=== PATIENT | female | born 1995 | race Caucasian/White ===

== ENCOUNTER → 2022-09-24 14:49 | Outpatient (BNVA) | payer OTHER, SELFPAY | PROVIDERS: PCP Internal Medicine; Visit Provider Student in an Organized Health Care Education/Training Program | DX: R76.8 Other specified abnormal immunological findings in serum (principal); I73.00 Raynaud's syndrome without gangrene | CPT/HCPCS: 99202 ==

== ENCOUNTER 2022-09-24 15:57 | Outpatient (REF) | payer OTHER, SELFPAY ==
[2022-09-24 17:05] LABS: Basophils Percent Auto 0.3 % (0-2); Mean Corpuscular Hemoglobin 31.7 pg (27.0-33.0); PLT CLUMP 1; Red Cell Distribution Width 12.4 % (11.0-16.0); SCAN SMEAR FLAG 1
[2022-09-24 17:08] LABS: Eosinophils Absolute Auto 0.1 X10*3/uL (0.0-0.4); Eosinophils Percent Auto 1.5 % (0-4); Hematocrit 41.9 % (37.0-47.0); Imm Gran Abs Auto 0.03 X10*3/uL (0.00-0.03); Imm Gran Pct Auto 0.3 % (0.0-0.4); Lymphocytes Absolute Auto 1.7 X10*3/uL (1.2-4.9); Lymphocytes Percent Auto 19.2 % (20-40); MANUAL DIFF FLAG SCAN; Mean Corpuscular HGB Conc 33.4 g/dl (31.0-35.0); Monocytes Absolute Auto 0.9 X10*3/uL (0.1-1.2); Monocytes Percent Auto 10.1 % (2-11); Neutrophils Absolute Auto 6.1 x10*3/uL (2.0-8.3); Neutrophils Percent Auto 68.6 % (45-73); Red Blood Count 4.41 X10*6/uL (4.20-5.50)
[2022-09-24 17:40] LABS: Platelet Count 216 X10*3/uL (160-400)
[2022-09-24 17:41] LABS: SLIDE REVIEW VERIFIED; White Blood Count 8.9 X10*3/uL (4.8-10.8)
[2022-09-24 18:16] LABS: Erythrocyte Sedimentation Rate 4 MM/HR (0-20)
[2022-09-24 18:28] LABS: Alanine Aminotransferase 17 U/L (0-31); Albumin Level 4.6 g/dL (3.5-5.0); Alkaline Phosphatase 68 U/L (39-117); Anion Gap 11 (12-20); Aspartate Amino Transferase 22 U/L (5-31); Bilirubin Total 0.2 mg/dL (0.0-1.0); Blood Urea Nitrogen 18 mg/dL (9-16); C Reactive Protein < 0.10 mg/dL (< or = 0.50); Calcium 9.8 mg/dL (8.4-10.2); Carbon Dioxide 25 mmol/L (22-29); Chloride 107 mmol/L (96-108); Estimated Glomerular Filt Rate > 60; Glucose Random 98 mg/dL (60-115); Potassium 4.3 mmol/L (3.3-5.1); Rheumatoid Factor < 13.0 IU/mL (<15.0); Sodium 139 mmol/L (135-145); Total Protein 7.5 g/dL (6.5-8.0)
[2022-09-25 10:59] LABS: Complement C3 100 mg/dL (83-193)
[2022-09-26 14:18] LABS: IgA 209 mg/dL (47-310); IgG 1286 mg/dL (600-1640); IgM 102 mg/dL (50-300)
[2022-09-28 12:43] LABS: Immunoglobulin G Subclass 1 655 mg/dL (382-929); Immunoglobulin G Subclass 2 266 mg/dL (241-700); Immunoglobulin G Subclass 3 73 mg/dL (22-178); Immunoglobulin G Subclass 4 98.8 mg/dL (4-86); Immunoglobulin G Total 1219 mg/dL (600-1640)
[2022-09-28 13:38] LABS: Cardiolipin IgG Ab <2.0 GPL-U/mL; Cardiolipin IgM Ab <2.0 MPL-U/mL
[2022-09-28 15:09] LABS: Anti Nuclear Antibody Screen POSITIVE (NEGATIVE)
[2022-09-28 16:28] LABS: Cyclic Citrullinated Peptide <16 UNITS
[2022-09-28 19:25] LABS: Anti DNA DS Antibody <1 IU/mL; Antibody to SS-A Antigen <1.0 NEG AI (<1.0 NEG); Antibody to SS-B Antigen <1.0 NEG AI (<1.0 NEG); SM/Ribonucleoprotein Ab <1.0 NEG AI (<1.0 NEG); Smith Protein <1.0 NEG AI (<1.0 NEG)
[2022-09-29 13:23] LABS: PTT (LAC) Screen 33 sec (<=40)
[2022-09-30 04:04] LABS: Beta-2 Glycoprotein IgA <2.0 U/mL (<20.0); Beta-2 Glycoprotein IgG <2.0 U/mL (<20.0); Beta-2 Glycoprotein IgM <2.0 U/mL (<20.0)
[2022-10-01 14:09] LABS: Centromere Protein A Ab <11 SI (<11); Centromere Protein B Ab <11 SI (<11); Fibrillarin Ab <11 SI (<11); PM SCL 100 Ab <11 SI (<11); PM SCL 75 Ab <11 SI (<11); RNA Polymerase III RP11 Ab <11 SI (<11); RNA Polymerase III RP155 Ab <11 SI (<11); SCL-70 Extractable Nuclear Ab <11 SI (<11); Th-To Ab <11 SI (<11); U1 SNRNP RNP 70KD <11 SI (<11); U1 SNRNP RNP A <11 SI (<11); U1 SNRNP RNP C <11 SI (<11)
[2022-10-01 14:53] LABS: DNAds, Crithidia Antibody Negative (Negative)
== END 2022-09-24 15:58 | disposition home or self-care (01) ==
LOC: HO.LAB 15:57
PROVIDERS: Visit Provider Student in an Organized Health Care Education/Training Program
DX: R76.8 Other specified abnormal immunological findings in serum (principal); I73.00 Raynaud's syndrome without gangrene
CPT/HCPCS: 36415; 80053; 82550; 82784; 84182; 85025; 85597; 85613; 85652; 85730; 86038; 86039; 86140; 86146; 86147; 86160; 86200; 86225; 86235; 86255; 86431

== ENCOUNTER 2022-12-03 10:43 | Outpatient (REF) | payer SELFPAY ==
[2022-12-03 14:01] LABS: Appearance Urine Cloudy; Color Urine Yellow; Glucose Urine UA Negative (Negative); Leukocyte Esterase Urine Negative (Negative); Nitrite Urine Negative (Negative); PH 6.5 (5.0-9.0); Specific Gravity - Urine >= 1.030 (1.005-1.025); Urine Blood Negative (Negative); Urine Ketones 15 mg/dL (Negative); Urine Protein Trace mg/dL (Neg-Trace)
== END 2022-12-03 10:44 | disposition home or self-care (01) ==
LOC: HO.LAB 10:43
PROVIDERS: Visit Provider Nurse Practitioner Family
DX: R07.81 Pleurodynia (principal)
CPT/HCPCS: 81003

== ENCOUNTER 2023-08-06 07:57 | Outpatient (AMB) | payer OTHER, SELFPAY ==
--- NOTE | 2023-08-06 07:57 | MHC.OFFVIS ---
Intake Vital Signs 08/06/23 07:58 Height 5 ft 7 in Weight 132 lb 4.438 oz BMI 20.7 BP 110/70 Blood Pressure Location Lt brachial Position Sitting Pulse 73 Pulse Source Pulse Oximeter Temp 98.2 F Temp Source Skin Pulse Oximetry (%) 93 Oxygen Delivery Method Room Air Intake Visit Reasons: +VE ANDRAE Intake Note: Pt presents today for follow up and test results. Reports always feeling tired. 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 Accompanied by: Self / Same As Patient Allergies amoxicillin Adverse Reaction (Unknown, Verified 08/06/23 07:59) Unknown benzoyl peroxide Adverse Reaction (Unknown, Verified 08/06/23 07:59) Unknown doxycycline Adverse Reaction (Unknown, Verified 08/06/23 07:59) Unknown nut - unspecified Adverse Reaction (Unknown, Verified 08/06/23 07:59) Unknown Penicillins Adverse Reaction (Unknown, Verified 08/06/23 07:59) Unknown Medication List - Last Reconciled 08/06/23 by Neto Estrada MD blood-glucose sensor (Power Fingerprinting G7 Sensor device) As directed bupropion HCl 150 mg PO DAILY buspirone 5 mg PO DAILY epinephrine IM fluoxetine 10 mg PO DAILY insulin aspart U-100 (Novolog FlexPen U-100 Insulin aspart) 0 - 12 units subcut TID insulin aspart U-100 (Novolog U-100 Insulin aspart) subcut insulin glargine (Lantus Solostar U-100 Insulin) 18 units subcut BEDTIME subcutaneous insulin pump (T:Slim X2 Control-IQ) As directed HPI HPI Comments History of Present Illness Details Patient returns for follow-up after completion of her blood work. Initial history: This is a 26-year-old female with a past medical history of celiac disease diagnosed at age 19 after endoscopy + biopsy who presents for evaluation of a positive ANDRAE. Patient stated that starting 2021 she was not feeling well for 3 months until she was not feeling well in January and at that time she was admitted to the hospital her blood sugars were significantly elevated and which she was found to have COVID infection. She was diagnosed with type 1 diabetes mellitus. She is currently on insulin. Patient also complains of flares of swollen lymph nodes, fatigue, muscle weakness, intermittent pain. She has had Raynaud's since she was a child, her fingers change color to whitish then purple. Color reverses to normal in about 5 minutes. Denied ever having ulcers on her digits. She denies any blood or frothy urine. No history of DVT/PE. Her mother has Sjogren's and she has a cousin with Crohn's disease. [facility] Medical History Subclinical hyperthyroidism Raynaud's disease without gangrene ADHD (attention deficit hyperactivity disorder) ANDRAE positive Celiac disease Surgical History H/O arthroscopic knee surgery Family History Mother Sjogren's syndrome Maternal Grandmother Raynauds disease Leukemia Maternal Grandfather Prostate cancer Coronary artery disease Paternal Grandmother Uterine cancer Paternal Grandfather Diabetes Social History Household Members: Other Household Members Other:: grandfather Housing: House Alcohol intake: current Alcohol intake frequency: a few times a month Alcohol type: wine Patient Tobacco Use Status: Never used Tobacco e-Cigarette/Vaping Use: Never Used service: No Current occupational status: employed Current occupation: kindergarden teacher Review of Systems Const Reports fatigue Endo Reports fatigue Physical Exam Vital Signs: Last Vital Signs Temp 98.2 F 08/06/23 07:58 Pulse 73 08/06/23 07:58 BP 110/70 08/06/23 07:58 Pulse Ox 93 08/06/23 07:58 Oxygen Delivery Method Room Air 08/06/23 07:58 BMI result Body Mass Index 20.7 Const General: comfortable, no acute distress and well developed Nutritional Appearance: average body habitus and well nourished Orientation/consciousness: patient oriented x3 Limitations: no limitations HEENT Head: Yes normocephalic and Yes atraumatic Resp Effort & Inspection: normal respiratory effort and able to speak in complete sentences Neuro General: patient oriented x3 Assessment & Plan Assessment & Plan (1) ANDRAE positive: Code(s): R76.8 - Other specified abnormal immunological findings in serum Plan: This is a 27-year-old the past medical history of celiac disease diagnosed at age 19 and new onset type 1 diabetes mellitus diagnosed 2021 as well as an episode of subclinical thyroiditis was referred for positive ANDRAE 1:160 DFS. Patient has intermittent episodes of fatigue, lymphadenopathy, joint pain, muscle pain and weakness, fevers. She has had Raynaud since she was a child but no complications and normal nailfold capillaroscopy. She has a significant family history of autoimmune disease, her mother has Sjogren's, cousin with Crohn's and aunt with lupus. Comprehensive serology for underlying autoimmune rheumatic disease is normal. Inflammatory markers are normal. I do not see any evidence of an autoimmune rheumatic disease at this point. Patient can follow-up as needed Coding Level of Care Code Est Pt Level 3 (76978) Diagnoses ANDRAE positive R76.8
[2023-08-06 07:58] VITALS: BP 110/70; PULSE 73; TEMP 36.8; O2SAT 93; BMI 20.7
== END 2023-08-06 08:08 | disposition home or self-care (01) ==
LOC: HO.RHE 07:57
PROVIDERS: PCP Internal Medicine; Visit Provider Student in an Organized Health Care Education/Training Program
DX: R76.8 Other specified abnormal immunological findings in serum (principal)
CPT/HCPCS: 99213

== ENCOUNTER → 2023-08-06 07:57 | Outpatient (BNVA) | payer OTHER, SELFPAY | PROVIDERS: PCP Internal Medicine; Visit Provider Student in an Organized Health Care Education/Training Program | DX: R76.8 Other specified abnormal immunological findings in serum (principal); I73.00 Raynaud's syndrome without gangrene; E05.80 Other thyrotoxicosis without thyrotoxic crisis or storm | CPT/HCPCS: 99212 ==